=== PATIENT | female | born 1940 | race Caucasian/White ===

== ENCOUNTER 2016-08-03 15:25 | Emergency (ER) | payer OTHER ==
[~2016-08-03] VITALS: Ht 165.1 cm; Wt 79.7 kg
[~2016-08-03 15:25] MED LIST: ASPIR-LOW81 MG PO; ASPIRIN81 M1 PO; ATORVASTATIN CA40 MG PO; CIPRO250 MG PO; CIPRO500 MG PO; FLONASE16 G1 BOTH NARES; FLOVENT 11120 INHALA IH; FLOVENT 22120 INHALA IH; Flonase BOTH NARES; GEMFIBROZIL600 MG PO; HALDOL0.5 MG PO; HUMULIN N100 UNITS/ SQ; HYDROCODON-ACE1 EAC7 PO; METFORMIN HCL1000 MG PO; METFORMIN HCL850 MG PO; METOPROLOL TART25 MG PO; MOTRIN800 MG PO; NAPROXEN500 MG PO; NIFEDIAC CC PO; NITROSTAT0.4 MG SL; NOVOLIN 70100 UNIT/1 SC; NOVOLIN,HU100 UNITS/ SC; NOVOLOG MI100 UNIT/4 SC; OMEPRAZOLE40 M1 PO; PAXIL20 M1 PO; PAXIL20 MG PO; PLAVIX75 MG PO; PREDNISONE20 MG PO; PROAIR HFA8.5 GM IH; PULMICORT0.5 MG/21 IH; VENTOLIN HFA18 GM IH; XANAX0.5 MG; XANAX0.5 MG PO; ZANTAC150 M1 PO; ZANTAC150 MG PO; ZANTAC300 MG PO; ZITHROMAX Z-PA250 MG PO; ZITHROMAX250 MG PO
[2016-08-03 16:23] LABS: HEMATOCRIT 39.9 % (36.0-46.0); MCHC 32.1 G/DL (30.0-36.0); MCV 80.9 FL (83-99); PLATELET COUNT 547 K/uL (156-360); RBC DIS.WIDTH-CV 14.1 % (11.8-14.6); RBC DIS.WIDTH-SD 40.5 % (39-53); RED BLOOD COUNT 4.93 M/uL (3.80-5.20); WHITE BLOOD COUNT 13.1 K/uL (4.1-10.2)
[2016-08-03 16:34] LABS: CHLORIDE 97 mEq/L (99-109); POTASSIUM 3.1 mEq/L (3.7-5.4); SODIUM 135 mEq/L (136-147)
[2016-08-03 16:36] LABS: GLUCOSE 145 mg/dL (70-99)
[2016-08-03 16:37] LABS: ANION GAP 13 MEQ/L (2-14)
[2016-08-03 16:38] LABS: TOTAL BILIRUBIN 0.8 mg/dL (0.0-1.0)
[2016-08-03 16:40] LABS: ALKALINE PHOSPHATASE 86 IU/L (3-129); GFR ESTIMATE (CALCULATED) > 59 mL/min/
[2016-08-03 16:41] LABS: UREA NITROGEN (BUN) 13 mg/dL (9-23)
[2016-08-03 20:09] LABS: ADD MIUA? YES; BILIRUBIN SMALL; BLOOD TRACE; COLOR YELLOW ((YELLOW)); GLUCOSE (STRIP) NEGATIVE; KETONES 15; LEUKOCYTES SMALL; NITRITE NEGATIVE; PH, URINE 5.5 (5-8); PROTEIN (STRIP) TRACE; SPECIFIC GRAVITY 1.032 (1.000-1.030)
[2016-08-03 20:41] LABS: BACTERIA 3+; EPITHELIAL CELLS 1+; MUCUS TRACE; RED BLOOD CELLS NONE SEEN /HPF (0-5); UCUL ADDED? YES
[2016-08-03 20:42] LABS: CASTS NONE SEEN /LPF; CRYSTALS NONE SEEN
[2016-08-03] MEDS ORDERED: ZOFRAN4 MG PO (20:57)
[2016-08-03] MEDS ORDERED: BACTRIM,SEPT1 TABLET PO (20:57)
[2016-08-03] MEDS ORDERED: BACTRIM,SEPTRA S1 ML PO (21:07)
[2016-08-03 21:29] LABS: POINT-OF-CARE METER ID UU13113702
[2016-08-03 22:21] VITALS: BP 172/74
== END 2016-08-03 22:24 | disposition home or self-care (01) ==
LOC: EME 15:25
PROVIDERS: Physician Assistant
DX: N39.0 Urinary tract infection, site not specified (principal); R10.30 Lower abdominal pain, unspecified; R11.2 Nausea with vomiting, unspecified; E87.6 Hypokalemia; J45.909 Unspecified asthma, uncomplicated; J44.9 Chronic obstructive pulmonary disease, unspecified; E11.9 Type 2 diabetes mellitus without complications; I10 Essential (primary) hypertension; K21.9 Gastro-esophageal reflux disease without esophagitis; F03.90 Unspecified dementia, unspecified severity, without behavioral disturbance, psychotic disturbance, mood disturbance, and anxiety; Z79.84 Long term (current) use of oral hypoglycemic drugs; Z79.4 Long term (current) use of insulin; Z79.82 Long term (current) use of aspirin; Z86.73 Personal history of transient ischemic attack (TIA), and cerebral infarction without residual deficits
CPT/HCPCS: 74177; 80053; 81003; 82948; 85027; 87077; 87086; 87186; 93005; 99281; 99284; J2405; J7030

== ENCOUNTER 2016-08-16 12:11 | Inpatient (IN) | payer OTHER ==
[2016-08-16] VITALS (7 sets, daily range): BP systolic 96–159; BP diastolic 73–100
[~2016-08-16] VITALS: Ht 165.1 cm; Wt 76.3 kg
[~2016-08-16 12:11] MED LIST changes: +BACTRIM,SEPT1 TABLET PO; +BACTRIM,SEPTRA S1 ML PO; +ZOFRAN4 MG PO
[2016-08-16 12:50] LABS: HEMATOCRIT 39.6 % (36.0-46.0); MCH 25.5 PG (29.0-34.0); MCHC 31.6 G/DL (30.0-36.0); MCV 80.7 FL (83-99); MEAN PLAT.VOLUME 9.3 uM^3 (9.5-12.4); PLATELET COUNT 407 K/uL (156-360); RBC DIS.WIDTH-CV 14.5 % (11.8-14.6); RED BLOOD COUNT 4.91 M/uL (3.80-5.20); WHITE BLOOD COUNT 12.6 K/uL (4.1-10.2)
[2016-08-16 13:03] LABS: CHLORIDE 95 mEq/L (99-109); POTASSIUM 2.9 mEq/L (3.7-5.4); SODIUM 137 mEq/L (136-147)
[2016-08-16 13:05] LABS: GLUCOSE 186 mg/dL (70-99)
[2016-08-16 13:06] LABS: ANION GAP 12 MEQ/L (2-14)
[2016-08-16 13:07] LABS: TOTAL BILIRUBIN 1.2 mg/dL (0.0-1.0)
[2016-08-16 13:09] LABS: ALKALINE PHOSPHATASE 95 IU/L (3-129); GFR ESTIMATE (CALCULATED) > 59 mL/min/
[2016-08-16 13:10] LABS: UREA NITROGEN (BUN) 15 mg/dL (9-23)
[2016-08-16 13:15] LABS: TROP-I INTERPRETATION NEGATIVE; TROPONIN-I < 0.01 ng/mL (0.0-0.30)
[2016-08-16 13:41] LABS: ADD MIUA? YES; BILIRUBIN SMALL; BLOOD NEGATIVE; COLOR AMBER ((YELLOW)); GLUCOSE (STRIP) 50; KETONES 20; LEUKOCYTES NEGATIVE; NITRITE NEGATIVE; PROTEIN (STRIP) 100; SPECIFIC GRAVITY 1.028 (1.000-1.030)
[2016-08-16 13:55] LABS: EPITHELIAL CELLS 3+ /HPF
[2016-08-16 13:56] LABS: AMORPHOUS URATES CRYSTALS 3+; BACTERIA RARE /HPF; CASTS NONE SEEN /LPF; CRYSTALS PRESENT; MUCUS NONE SEEN /LPF; RED BLOOD CELLS 0-5 /HPF (0-5); UCUL ADDED? NO; WHITE BLOOD CELLS 0-5 /HPF (0-5)
[2016-08-16 15:28] LABS: LIPASE 21 U/L (1.0-51.0)
[2016-08-16] MEDS ORDERED: DESYREL100 MG PO (16:45)
[2016-08-16] MEDS ORDERED: LANTUS 3 M100 UNITS1 SC (16:45)
[2016-08-16] MEDS ORDERED: RISPERDAL2 MG PO (16:46)
[2016-08-16] MEDS ORDERED: DONEPEZIL HCL5 MG PO (16:46)
[2016-08-16 18:46] LABS: POINT-OF-CARE METER ID UU13113831
[2016-08-16 22:56] LABS: POINT-OF-CARE METER ID UU13113700
[2016-08-17 01:00] VITALS: BP 156/70
[2016-08-17 05:19] VITALS: BP 174/77
[2016-08-17 08:08] VITALS: BP 178/82
[2016-08-17 11:04] LABS: EOSINOPHIL (%) 0.7 % (0-5); EOSINOPHIL COUNT 0.1 K/uL (0-0.3); HEMATOCRIT 36.9 % (36.0-46.0); IMMATURE GRANULOCYTE (%) 0.7 % (0.0-0.7); IMMATURE GRANULOCYTE COUNT 0.1 K/uL; LYMPHOCYTE COUNT 1.9 K/uL (1.0-2.8); MCH 26.3 PG (29.0-34.0); MCHC 31.7 G/DL (30.0-36.0); MCV 82.9 FL (83-99); MEAN PLAT.VOLUME 9.8 uM^3 (9.5-12.4); MONOCYTE (%) 6.1 % (3-12); MONOCYTE COUNT 0.7 K/uL (0-0.8); NEUTROPHIL COUNT 8.2 K/uL (1.8-6.4); PLATELET COUNT 352 K/uL (156-360); RBC DIS.WIDTH-CV 14.4 % (11.8-14.6); RBC DIS.WIDTH-SD 43.3 % (39-53); RED BLOOD COUNT 4.45 M/uL (3.80-5.20); WHITE BLOOD COUNT 10.9 K/uL (4.1-10.2)
[2016-08-17 11:20] LABS: ALKALINE PHOSPHATASE 76 IU/L (3-129); ANION GAP 11 MEQ/L (2-14); CHLORIDE 98 MEQ/L (99-109); GFR ESTIMATE (CALCULATED) > 59 mL/min/; GLUCOSE 145 mg/dL (70-99); POTASSIUM 3.4 MEQ/L (3.7-5.4); SAMPLE HEMOLYSIS CHECK 0; SAMPLE ICTERIC CHECK 0; SAMPLE LIPEMIA CHECK 0; SODIUM 137 MEQ/L (136-147); TOTAL BILIRUBIN 1.1 MG/DL (0.0-1.0); UREA NITROGEN (BUN) 12 mg/dL (9-23)
[2016-08-17 13:09] LABS: POINT-OF-CARE METER ID UU13113831
[2016-08-17 16:24] VITALS: BP 187/82
[2016-08-17 20:00] VITALS: BP 137/80
[2016-08-17 21:55] LABS: POINT-OF-CARE METER ID UU13113831
[2016-08-18 00:05] VITALS: BP 160/70
[2016-08-18 04:34] VITALS: BP 172/74
[2016-08-18 07:23] LABS: ANION GAP 12 MEQ/L (2-14); CHLORIDE 98 MEQ/L (99-109); POTASSIUM 3.5 MEQ/L (3.7-5.4); SAMPLE HEMOLYSIS CHECK 1; SAMPLE ICTERIC CHECK 0; SAMPLE LIPEMIA CHECK 0; SODIUM 136 MEQ/L (136-147)
[2016-08-18 07:29] LABS: GFR ESTIMATE (CALCULATED) > 59 mL/min/; GLUCOSE 114 mg/dL (70-99); UREA NITROGEN (BUN) 7 mg/dL (9-23)
[2016-08-18 09:06] LABS: HEMATOCRIT 35.1 % (36.0-46.0); MCH 26.6 PG (29.0-34.0); MCHC 32.5 G/DL (30.0-36.0); MEAN PLAT.VOLUME 9.4 uM^3 (9.5-12.4); PLATELET COUNT 313 K/uL (156-360); RBC DIS.WIDTH-CV 14.5 % (11.8-14.6); RBC DIS.WIDTH-SD 43.1 % (39-53); RED BLOOD COUNT 4.28 M/uL (3.80-5.20); WHITE BLOOD COUNT 10.1 K/uL (4.1-10.2)
[2016-08-18 09:52] LABS: MAGNESIUM 1.3 mg/dl (1.3-2.7)
[2016-08-18 11:16] VITALS: BP 189/79
[2016-08-18 12:56] LABS: POINT-OF-CARE METER ID UU14162513
[2016-08-18 16:34] VITALS: BP 181/81
[2016-08-18 20:45] VITALS: BP 162/70
[2016-08-18 21:39] LABS: POINT-OF-CARE METER ID UU13113700
[2016-08-18 23:53] VITALS: BP 170/82
[2016-08-19 04:39] VITALS: BP 175/96
[2016-08-19 08:42] VITALS: BP 184/83
[2016-08-19 10:18] LABS: ANION GAP 12 MEQ/L (2-14); CHLORIDE 95 MEQ/L (99-109); POTASSIUM 3.2 MEQ/L (3.7-5.4); SAMPLE HEMOLYSIS CHECK 0; SAMPLE ICTERIC CHECK 0; SAMPLE LIPEMIA CHECK 0; SODIUM 136 MEQ/L (136-147)
[2016-08-19 10:23] LABS: GFR ESTIMATE (CALCULATED) > 59 mL/min/; GLUCOSE 121 mg/dL (70-99); UREA NITROGEN (BUN) 5 mg/dL (9-23)
[2016-08-19 15:03] VITALS: BP 158/78
[2016-08-19 20:00] VITALS: BP 155/82
[2016-08-20 00:56] VITALS: BP 126/82
[2016-08-20 06:28] LABS: ANION GAP 18 MEQ/L (2-14); CHLORIDE 95 MEQ/L (99-109); GFR ESTIMATE (CALCULATED) > 59 mL/min/; GLUCOSE 151 mg/dL (70-99); POTASSIUM 3.3 MEQ/L (3.7-5.4); SAMPLE HEMOLYSIS CHECK 0; SAMPLE ICTERIC CHECK 0; SAMPLE LIPEMIA CHECK 0; SODIUM 135 MEQ/L (136-147); UREA NITROGEN (BUN) 6 mg/dL (9-23)
[2016-08-20 07:54] VITALS: BP 154/78
[2016-08-20 08:08] LABS: MAGNESIUM 1.1 mg/dl (1.3-2.7)
[2016-08-20 12:02] VITALS: BP 195/78
[2016-08-20 12:36] LABS: POINT-OF-CARE METER ID UU13113831
[2016-08-20] MEDS ORDERED: PROTONIX40 MG PO (14:52)
[2016-08-20] MEDS ORDERED: REGLAN10 MG PO (14:54)
[2016-08-20] MEDS ORDERED: CARAFATE1 GM PO (14:54)
[2016-08-20] MEDS ORDERED: MAGOX 400400 MG PO (15:08)
[2016-08-20 17:11] LABS: POINT-OF-CARE METER ID UU13113831
== END 2016-08-20 22:31 | disposition home or self-care (01) | DRG 392 ==
LOC: EME → EDBD 12:11 → EME 12:11 → EDOF 15:22 → 5WEST 17:25
PROVIDERS: Emergency Medicine; Hospitalist; Internal Medicine; Nurse Practitioner Adult Health; Physician Assistant
PROC: 0DB68ZX Excision of Stomach, Via Natural or Artificial Opening Endoscopic, Diagnostic (ICD-10-PCS; principal; 2016-08-19)
DX: K29.70 Gastritis, unspecified, without bleeding (principal); K20.9 Esophagitis, unspecified; I10 Essential (primary) hypertension; E11.9 Type 2 diabetes mellitus without complications; J44.9 Chronic obstructive pulmonary disease, unspecified; Z87.891 Personal history of nicotine dependence; I25.10 Atherosclerotic heart disease of native coronary artery without angina pectoris; F03.90 Unspecified dementia, unspecified severity, without behavioral disturbance, psychotic disturbance, mood disturbance, and anxiety; E87.6 Hypokalemia; K57.90 Diverticulosis of intestine, part unspecified, without perforation or abscess without bleeding
CPT/HCPCS: 70450; 71010; 74176; 74241; 76705; 80048; 80053; 80306 90; 81003; 82948; 83690; 83735; 84100; 84484; 85025; 85027; 86850; 86900; 86901; 87177; 87329; 87493; 87506; 88305; 88342 TC; 93005; 94640; 94640 76; 97530 GO; 99202; 99281; 99285; C9113; G0378; G8978 GP CI; G8979 GP CH; G8987 GO CJ; G8988 CI; J1644; J1815; J2405; J2765; J3010; J3475; J3480; J7030; J7050; J8540

== ENCOUNTER 2017-01-21 16:11 | Emergency (ER) | payer OTHER ==
[~2017-01-21] VITALS: Ht 167.6 cm; Wt 67.2 kg
[~2017-01-21 16:11] MED LIST changes: +CARAFATE1 GM PO; +DESYREL100 MG PO; +DONEPEZIL HCL5 MG PO; +LANTUS 3 M100 UNITS1 SC; +MAGOX 400400 MG PO; +PROTONIX40 MG PO; +REGLAN10 MG PO; +RISPERDAL2 MG PO
[2017-01-21 16:48] LABS: EOSINOPHIL (%) 1.4 % (0-5); EOSINOPHIL COUNT 0.2 K/uL (0-0.3); HEMATOCRIT 37.9 % (36.0-46.0); IMMATURE GRANULOCYTE (%) 0.5 % (0.0-0.7); IMMATURE GRANULOCYTE COUNT 0.1 K/uL; INSTRUMENT ABS NEUTROPHIL CT 7.5 K/uL; LYMPHOCYTE COUNT 2.1 K/uL (1.0-2.8); MCHC 32.2 G/DL (30.0-36.0); MCV 83.8 FL (83-99); MEAN PLAT.VOLUME 9.3 uM^3 (9.5-12.4); MONOCYTE (%) 5.7 % (3-12); MONOCYTE COUNT 0.6 K/uL (0-0.8); NEUTROPHIL (%) 71.7 % (45-76); NEUTROPHIL COUNT 7.5 K/uL (1.8-6.4); PLATELET COUNT 342 K/uL (156-360); RBC DIS.WIDTH-CV 13.8 % (11.8-14.6); RBC DIS.WIDTH-SD 42.1 % (39-53); RED BLOOD COUNT 4.52 M/uL (3.80-5.20); WHITE BLOOD COUNT 10.4 K/uL (4.1-10.2)
[2017-01-21 16:56] LABS: CHLORIDE 102 mEq/L (99-109); SODIUM 134 mEq/L (136-147)
[2017-01-21 16:58] LABS: GLUCOSE 194 mg/dL (70-99)
[2017-01-21 16:59] LABS: ANION GAP 9 MEQ/L (2-14)
[2017-01-21 17:00] LABS: TOTAL BILIRUBIN 0.5 mg/dL (0.0-1.0)
[2017-01-21 17:02] LABS: ALKALINE PHOSPHATASE 90 IU/L (3-129); GFR ESTIMATE (CALCULATED) > 59 mL/min/
[2017-01-21 17:03] LABS: UREA NITROGEN (BUN) 17 mg/dL (9-23)
[2017-01-21 17:04] LABS: DIRECT BILIRUBIN 0.2 mg/dL (0.0-0.3)
[2017-01-21 17:05] LABS: LIPASE 14 U/L (1.0-51.0)
[2017-01-21 17:07] LABS: POINT-OF-CARE METER ID UU13113747
[2017-01-21 17:27] LABS: TROP-I INTERPRETATION NEGATIVE; TROPONIN-I < 0.01 ng/mL (0.0-0.30)
[2017-01-21 17:32] LABS: PROTHROMBIN TIME 11.5 SEC (10.2-12.9)
[2017-01-21 18:31] LABS: ADD MIUA? YES; BILIRUBIN NEGATIVE; BLOOD NEGATIVE; COLOR YELLOW ((YELLOW)); GLUCOSE (STRIP) 50; KETONES NEGATIVE; LEUKOCYTES SMALL; NITRITE NEGATIVE; PROTEIN (STRIP) NEGATIVE; UROBILINOGEN 0.2 MG/DL (0.2-1.0)
[2017-01-21 18:47] LABS: BACTERIA RARE /HPF; EPITHELIAL CELLS RARE /HPF; HYALINE CASTS 0-5 /LPF; MUCUS TRACE /LPF; RED BLOOD CELLS 0-5 /HPF (0-5); UCUL ADDED? NO
[2017-01-21 21:01] VITALS: BP 176/75
== END 2017-01-21 21:14 | disposition home or self-care (01) ==
LOC: EME 16:11
PROVIDERS: Emergency Medicine
DX: F03.90 Unspecified dementia, unspecified severity, without behavioral disturbance, psychotic disturbance, mood disturbance, and anxiety (principal); R63.4 Abnormal weight loss; E11.9 Type 2 diabetes mellitus without complications; I10 Essential (primary) hypertension; F32.9 Major depressive disorder, single episode, unspecified; J44.9 Chronic obstructive pulmonary disease, unspecified; Z63.8 Other specified problems related to primary support group; Z79.84 Long term (current) use of oral hypoglycemic drugs; Z79.899 Other long term (current) drug therapy; Z88.6 Allergy status to analgesic agent; Z88.1 Allergy status to other antibiotic agents; Z79.4 Long term (current) use of insulin; Z90.49 Acquired absence of other specified parts of digestive tract
CPT/HCPCS: 70450; 71010; 80048; 80076; 81003; 82948; 83690; 84484; 85025; 85610; 93005; 99281; 99284

== ENCOUNTER 2017-03-25 18:46 | Emergency (ER) | payer OTHER ==
[~2017-03-25] VITALS: Ht 170.2 cm; Wt 74.5 kg
[2017-03-25 19:47] LABS: ADD MIUA? YES; BILIRUBIN NEGATIVE; BLOOD SMALL; COLOR YELLOW ((YELLOW)); GLUCOSE (STRIP) >=500; KETONES NEGATIVE; LEUKOCYTES TRACE; NITRITE NEGATIVE; PROTEIN (STRIP) NEGATIVE; SPECIFIC GRAVITY 1.023 (1.000-1.030); UROBILINOGEN 0.2 MG/DL (0.2-1.0)
[2017-03-25 19:55] LABS: BACTERIA RARE /HPF; EPITHELIAL CELLS NONE SEEN /HPF; MUCUS TRACE /LPF; RED BLOOD CELLS 0-5 /HPF (0-5); UCUL ADDED? YES
[2017-03-25 20:09] LABS: EOSINOPHIL (%) 1.3 % (0-5); EOSINOPHIL COUNT 0.1 K/uL (0-0.3); HEMATOCRIT 37.4 % (36.0-46.0); IMMATURE GRANULOCYTE (%) 0.5 % (0.0-0.7); INSTRUMENT ABS NEUTROPHIL CT 5.6 K/uL; LYMPHOCYTE COUNT 1.5 K/uL (1.0-2.8); MCH 27.8 PG (29.0-34.0); MCHC 32.4 G/DL (30.0-36.0); MCV 85.8 FL (83-99); MEAN PLAT.VOLUME 9.3 uM^3 (9.5-12.4); MONOCYTE (%) 7.9 % (3-12); MONOCYTE COUNT 0.6 K/uL (0-0.8); NEUTROPHIL (%) 71.3 % (45-76); NEUTROPHIL COUNT 5.6 K/uL (1.8-6.4); PLATELET COUNT 323 K/uL (156-360); RBC DIS.WIDTH-SD 40.4 % (39-53); RED BLOOD COUNT 4.36 M/uL (3.80-5.20); WHITE BLOOD COUNT 7.8 K/uL (4.1-10.2)
[2017-03-25 20:19] LABS: CHLORIDE 105 mEq/L (99-109); POTASSIUM 3.7 mEq/L (3.7-5.4); SODIUM 139 mEq/L (136-147)
[2017-03-25 20:21] LABS: GLUCOSE 266 mg/dL (70-99)
[2017-03-25 20:22] LABS: ANION GAP 11 MEQ/L (2-14)
[2017-03-25 20:24] LABS: GFR ESTIMATE (CALCULATED) > 59 mL/min/
[2017-03-25 20:25] LABS: UREA NITROGEN (BUN) 18 mg/dL (9-23)
[2017-03-25 22:51] VITALS: BP 185/101
== END 2017-03-25 22:58 | disposition home or self-care (01) ==
LOC: EME 18:46
PROVIDERS: Emergency Medicine
DX: F43.24 Adjustment disorder with disturbance of conduct (principal); F02.81 Dementia in other diseases classified elsewhere, unspecified severity, with behavioral disturbance; I10 Essential (primary) hypertension; E11.9 Type 2 diabetes mellitus without complications; Z79.4 Long term (current) use of insulin; I48.91 Unspecified atrial fibrillation; J44.9 Chronic obstructive pulmonary disease, unspecified; K21.9 Gastro-esophageal reflux disease without esophagitis; Z88.1 Allergy status to other antibiotic agents; Z88.6 Allergy status to analgesic agent
CPT/HCPCS: 71010; 80048; 81003; 85025; 87086; 90839; 99281; 99284